=== PATIENT | female | born 1990 | race Caucasian/White ===

== ENCOUNTER 2018-03-23 09:56 | Observation (INO) | payer MEDICAID ==
--- NOTE | 2018-03-23 10:50 | EDPHY ---
H & P Stated Complaint: generalized abd pain and r shoulder pain Time Seen by Provider: 03/23/18 10:28 HPI/ROS: CHIEF COMPLAINT: Abdominal pain, right shoulder pain HISTORY OF PRESENT ILLNESS: 27-year-old female history of autism, minimally verbal, in the ER with mother who provides history. Mother describes patient's history of recurrent constipation however since yesterday afternoon has been complaining of epigastric pain as well as right shoulder pain. No trauma. No discoloration to the shoulder or abdomen. Positive nausea. No vomiting. No bowel movement today. No passing of gas. REVIEW OF SYSTEMS: 10 systems reviewed and negative with the exception of the elements mentioned in the history of present illness PAST MEDICAL & SURGICAL HISTORY: Recurrent constipation. Autism spectrum. Minimally verbal. SOCIAL HISTORY:Lives with parents PHYSICAL EXAM (Prior to examination, patient consented to physical exam, hands were washed and my usual and customary physical exam procedures followed) 1) GENERAL: Well-developed, well-nourished, alert and oriented. Appears to be in no acute distress. 2) HEAD: Normocephalic, atraumatic 3) HEENT: Pupils equal, round, reactive to light bilaterally. Sclera anicteric. Nasopharynx, oropharynx, clear, no lesions. Dry mucous membranes. 4) NECK: Full range of motion, no meningeal signs. 5) LUNGS: Clear auscultation bilaterally, no wheezes, no rhonchi, no retractions. 6) HEART: Regular rate and rhythm, no murmur, no heave, no gallop. 7) ABDOMEN: Tender to palpation epigastrium and right upper quadrant. Positive distension. Negative McBurney's, negative Rovsing's, negative peritoneal sign, 8) MUSCULOSKELETAL: Right upper extremity: No visible or palpable abnormality. No step-off. No signs of trauma. Otherwise, Moving all extremities, no focal areas of tenderness, no obvious trauma. No peripheral edema or discoloration. 9) BACK: No CVA tenderness, no midline vertebral tenderness, no fluctuance, no step-off, no obvious trauma, no visual or palpable abnormality. 10) SKIN: No rash, no petechiae. 11) Psychiatric: Patient is oriented X 3, there is no agitation. DIFFERENTIAL DIAGNOSIS: In no particular order, including but not limited to biliary colic, cholecystitis, peptic ulcer disease, bowel obstruction, volvulus, obstipation pancreatitis, and gastroenteritis. This is a partial list of diagnoses considered. These considerations are based on history, physical exam, past history and reassessment. - Personal History LMP (Females 10-55): 1-7 Days Ago Current Tetanus Diphtheria and Acellular Pertussis (TDAP): Yes - Medical/Surgical History Hx Asthma: No Hx Chronic Respiratory Disease: No Hx Diabetes: No Hx Cardiac Disease: No Hx Renal Disease: No Hx Cirrhosis: No Hx Alcoholism: No Hx HIV/AIDS: No Hx Splenectomy or Spleen Trauma: No Other PMH: autism/seizure as child constipation - Social History Smoking Status: Never smoked Constitutional: Initial Vital Signs Temperature (C) 36.5 C 03/23/18 10:01 Heart Rate 105 H 03/23/18 10:01 Respiratory Rate 17 03/23/18 10:01 Blood Pressure 99/78 L 03/23/18 10:01 O2 Sat (%) 98 03/23/18 10:01 O2 Delivery Mode Room Air Allergies/Adverse Reactions: phenobarbital Allergy (Verified 03/23/18 10:01) Home Medications: Medication Instructions Recorded Guar Gum [Benefiber/Nutrisource 2 tsp PO DAILY 03/23/18 Fiber (*)] Magnesium Hydroxide [Milk of 45 ml PO FR 03/23/18 Magnesia] Medical Decision Making - Diagnostics Imaging Results: Imaging Impressions Abdomen Ultrasound 03/23/18 10:46 Impression: 1. Technically limited exam with inadequate assessment of the pancreas, left hepatic lobe, mid to distal abdominal aorta, gallbladder, and common bile duct. 2. Query "starry night" appearance of the right hepatic lobe. Correlation with hepatitis serologies is suggested. Findings were discussed with Johnny Churchill PA-C at 12:17, on 03/23/2018. Shoulder X-Ray 03/23/18 10:46 Impression: Normal. Findings were discussed with Johnny Churchill PA-C at 12:22, on 03/23/2018. Abdomen CT 03/23/18 12:23 Impression: 1. Severe obstipation, with constipation at the level of the rectum. 2. Urinary bladder cystitis. 3. Nonvisualization of the gallbladder. 4. Equivocal mild central "mesenteric swirling," which could be an early indicator of an internal hernia. Follow-up is suggested. Findings were discussed with Johnny Churchill PA-C at 14:07, on 03/23/2018. Images reviewed myself the ED Course/Re-evaluation: 10:49 a.m.: Patient's history is challenging given her history of autism spectrum and minimally verbal status. Mother and I discussed possible etiologies for her shoulder pain including fracture, sprain, strain or referred pain from abdominal pathology. Will obtain diagnostic studies including ultrasound of the gallbladder, laboratory studies. Care of patient under supervision of secondary supervising physician Dr Alexandra with whom I discussed case. 2:40 p.m.: Re-evaluation. Patient is sleeping. Discussed the imaging results with the parents. I recommended catheterized urinalysis as well as manual disimpaction of feces. Parents request anxiolytic be administered prior to this procedure. 3:30 p.m.: Consultation with hospitalist Dr. Anthony who will admit patient. 3:45 p.m.: With assistance of nursing staff, Quick cath is negative, no urine; rectal examination was extensive stool in the rectal vault, approximately baseball size amount of stool removed by myself. Will place soapsuds enema. 4:23 p.m.: Consultation with Dr. Kiko pierre who will consult - Data Points Laboratory Results: Laboratory Results 03/23/18 11:24 03/23/18 11:24 03/23/18 03/23/18 03/23/18 11:24 11:24 11:24 WBC 13.03 10^3/uL H 10^3/uL (3.80-9.50) RBC 4.08 10^6/uL L 10^6/uL (4.18-5.33) Hgb 13.5 g/dL g/dL (12.6-16.3) Hct 38.2 % % (38.0-47.0) MCV 93.6 fL fL (81.5-99.8) MCH 33.1 pg pg (27.9-34.1) MCHC 35.3 g/dL g/dL (32.4-36.7) RDW 11.9 % % (11.5-15.2) Plt Count 180 10^3/uL 10^3/uL (150-400) MPV 9.3 fL fL (8.7-11.7) Neut % (Auto) 88.7 % H % (39.3-74.2) Lymph % (Auto) 6.9 % L % (15.0-45.0) [place] % (Auto) 3.7 % L % (4.5-13.0) Eos % (Auto) 0.0 % L % (0.6-7.6) Baso % (Auto) 0.2 % L % (0.3-1.7) Nucleat RBC Rel Count 0.0 % % (0.0-0.2) Absolute Neuts (auto) 11.56 10^3/uL H 10^3/uL (1.70-6.50) Absolute Lymphs (auto) 0.90 10^3/uL L 10^3/uL (1.00-3.00) Absolute Monos (auto) 0.48 10^3/uL 10^3/uL (0.30-0.80) Absolute Eos (auto) 0.00 10^3/uL L 10^3/uL (0.03-0.40) Absolute Basos (auto) 0.02 10^3/uL 10^3/uL (0.02-0.10) Absolute Nucleated RBC 0.00 10^3/uL 10^3/uL (0-0.01) Immature Gran % 0.5 % % (0.0-1.1) Immature Gran # 0.07 10^3/uL 10^3/uL (0.00-0.10) Sodium 137 mEq/L mEq/L (135-145) Potassium 3.9 mEq/L mEq/L (3.5-5.2) Chloride 106 mEq/L mEq/L (97-110) Carbon Dioxide 24 mEq/l mEq/l (22-31) Anion Gap 7 mEq/L mEq/L (6-14) BUN 15 mg/dL mg/dL (7-23) Creatinine 0.7 mg/dL mg/dL (0.6-1.0) Estimated GFR > 60 Glucose 100 mg/dL mg/dL (70-100) Calcium 9.3 mg/dL mg/dL (8.5-10.4) Total Bilirubin 2.4 mg/dL H mg/dL (0.1-1.4) Conjugated Bilirubin 0.2 mg/dL mg/dL (0.0-0.5) Unconjugated Bilirubin 2.2 mg/dL H mg/dL (0.0-1.1) AST 59 IU/L H IU/L (14-46) ALT 51 IU/L IU/L (9-52) Alkaline Phosphatase 50 IU/L IU/L (38-126) Total Protein 7.3 g/dL g/dL (6.3-8.2) Albumin 4.2 g/dL g/dL (3.5-5.0) Lipase 86 IU/L IU/L (23-300) Beta HCG, Qual NEGATIVE Medications Given: Discontinued Medications Lorazepam (Ativan Injection) 1 mg IVP EDNOW ONE Stop: 03/23/18 14:44 Last Admin: 03/23/18 14:47 Dose: 1 mg Departure - Departure Disposition: [facility] Inpatient Acute Clinical Impression: Obstipation, Autism spectrum disorder Condition: Fair
[2018-03-23 11:35] LABS: PLATELET COUNT 180 10^3/uL (150-400)
[2018-03-23] MEDS ORDERED: IOPAMIDOL (ISOVUE-300) 100 ML BTL ONE (12:49)
[2018-03-23] MEDS ORDERED: LORazepam 2 MG/ML INJ IVP ONE (14:43)
[2018-03-23] MEDS ORDERED: LORazepam 2 MG/ML INJ ONE (14:44)
[2018-03-23] MEDS ORDERED: ACETAMINOPHEN 325 MG TAB PO PRN (15:32)
[2018-03-23] MEDS ORDERED: ONDANSETRON DISINTEGRATING 4 MG TAB PO PRN (15:32)
[2018-03-23] MEDS ORDERED: ONDANSETRON 4 MG/2 ML VIAL IVP PRN (15:32)
[2018-03-23] MEDS ORDERED: BISACODYL 10 MG SUPP PR PRN (15:34)
[2018-03-23] MEDS ORDERED: MAGNESIUM HYDROXIDE 30 ML UDCUP PO PRN (15:34)
[2018-03-23] MEDS ORDERED: LACTULOSE 20 GM/30 ML UDCUP PO PRN (15:34)
[2018-03-23] MEDS ORDERED: POLYETHYLENE GLYCOL 3350 17 GM PKT PO PRN (15:34)
--- NOTE | 2018-03-23 16:46 | PDGENHP ---
<Varsha Taveras - Last Filed: 03/23/18 18:19> History and Physical - Chief Complaint Abdominal pain - History of Present Illness This is a 27 y/o female who is autistic with minimal verbal interaction presenting with acute lower abdominal pain and right shoulder pain. Her mother was at bedside and cares for the pt. The mother reports chronic constipation since she was at a young age. The pt began to experience abdominal discomfort yesterday. She has a bowel movement every week with the assistance of milk of magnesia. Her bowel movements are rather large in volume, formed, no hematochezia or melena. She was "toliet trained" from ages [age] years old but then "life changes" took place and she became urine incontinent and currently has to wear diapers. No chest pains, SOB, fevers, chills. Abdominal ultrasound and CT scan revealed severe obstipation with constipation at the rectum. She received Ativan and was digitally disimpacted by Dr. Churchill. Afterwards, received a soapsuds enema. She is being admitted for observation. Past Medical/Surgical History 1. Recurrent constipation 2. Autism spectrum 3. Auditory processing disorder Social 1. No tobacco or illicit drug use. No alcohol use. Lives with mother and father. History Information - Allergies/Home Medication List Allergies/Adverse Reactions: phenobarbital Allergy (Verified 03/23/18 10:01) Home Medications: Guar Gum [Benefiber/Nutrisource Fiber (*)] 2 tsp PO DAILY 03/23/18 [Last Taken 03/16/18] Magnesium Hydroxide [Milk of Magnesia] 45 ml PO FR 03/23/18 [Last Taken 03/22/18 ] I have personally reviewed and updated: family history, medical history, social history, surgical history Past Medical History: See HPI list - Surgical History Reports: no pertinent surgical hx Additional surgical history: Eldred teeth removed - Family History Additional family history: Depression - Social History Smoking Status: Never smoked Alcohol Use: None Drug Use: None Review of Systems Review of Systems: ROS: 10pt was reviewed & negative except for what was stated in HPI & below Constitutional: Reports: malaise EENMT: Reports: no symptoms Cardiac: Reports: no symptoms Respiratory: Reports: no symptoms Gastrointestinal: Reports: abdominal pain, abdominal distention, constipation, nausea Genitourinary: Reports: no symptoms Muscolosketal: Reports: muscle pain (R shoulder) Skin: Reports: no symptoms Neurological: Reports: pre-existing deficit Hematologic/Lymphatic: Reports: no symptoms Immunologic/Allergy: Reports: other (See allergy list) Physical Exam Physical Exam: Lab data and imaging reviewed Temp Pulse Resp BP Pulse Ox 36.5 C 100 18 130/72 H 96 03/23/18 10:01 03/23/18 14:00 03/23/18 14:00 03/23/18 14:00 03/23/18 14:00 Constitutional: no apparent distress, appears nourished, not in pain Eyes: PERRL, anicteric sclera, EOMI Ears, Nose, Mouth, Throat: moist mucous membranes, hearing normal, ears appear normal, no oral mucosal ulcers Cardiovascular: regular rate and rhythym, no murmur, rub, or gallop, No edema Peripheral Pulses: 2+: dorsalis-pedis (R) (Radial 2+), dorsalis-pedis (L) ( Radial 2+) Respiratory: reduced air movement (Throughout bilateral lung brar) Gastrointestinal: normoactive bowel sounds, tenderness, distension Genitourinary: no bladder fullness, no bladder tenderness Skin: warm, normal color, no rashes or abrasions, no fluctuance, no induration, No mottled Musculoskeletal: full muscle strength, no muscle tenderness, normal joint ROM, no joint effusions Neurologic: sensation intact bilaterally, CN II-XII Intact, other (Follows commands appropriately) Psychiatric: interacting appropriately Lymph, Heme, Immunologic: no cervical LAD, no supraclavicular LAD Lab Data & Imaging Review 03/23/18 11:24 03/23/18 11:24 WBC 13.03 10^3/uL (3.80-9.50) H 03/23/18 11:24 RBC 4.08 10^6/uL (4.18-5.33) L 03/23/18 11:24 Hgb 13.5 g/dL (12.6-16.3) 03/23/18 11:24 Hct 38.2 % (38.0-47.0) 03/23/18 11:24 MCV 93.6 fL (81.5-99.8) 03/23/18 11:24 MCH 33.1 pg (27.9-34.1) 03/23/18 11:24 MCHC 35.3 g/dL (32.4-36.7) 03/23/18 11:24 RDW 11.9 % (11.5-15.2) 03/23/18 11:24 Plt Count 180 10^3/uL (150-400) 03/23/18 11:24 MPV 9.3 fL (8.7-11.7) 03/23/18 11:24 Neut % (Auto) 88.7 % (39.3-74.2) H 03/23/18 11:24 Lymph % (Auto) 6.9 % (15.0-45.0) L 03/23/18 11:24 [place] % (Auto) 3.7 % (4.5-13.0) L 03/23/18 11:24 Eos % (Auto) 0.0 % (0.6-7.6) L 03/23/18 11:24 Baso % (Auto) 0.2 % (0.3-1.7) L 03/23/18 11:24 Nucleat RBC Rel Count 0.0 % (0.0-0.2) 03/23/18 11:24 Absolute Neuts (auto) 11.56 10^3/uL (1.70-6.50) H 03/23/18 11:24 Absolute Lymphs (auto) 0.90 10^3/uL (1.00-3.00) L 03/23/18 11:24 Absolute Monos (auto) 0.48 10^3/uL (0.30-0.80) 03/23/18 11:24 Absolute Eos (auto) 0.00 10^3/uL (0.03-0.40) L 03/23/18 11:24 Absolute Basos (auto) 0.02 10^3/uL (0.02-0.10) 03/23/18 11:24 Absolute Nucleated RBC 0.00 10^3/uL (0-0.01) 03/23/18 11:24 Immature Gran % 0.5 % (0.0-1.1) 03/23/18 11:24 Immature Gran # 0.07 10^3/uL (0.00-0.10) 03/23/18 11:24 Sodium 137 mEq/L (135-145) 03/23/18 11:24 Potassium 3.9 mEq/L (3.5-5.2) 03/23/18 11:24 Chloride 106 mEq/L (97-110) 03/23/18 11:24 Carbon Dioxide 24 mEq/l (22-31) 03/23/18 11:24 Anion Gap 7 mEq/L (6-14) 03/23/18 11:24 BUN 15 mg/dL (7-23) 03/23/18 11:24 Creatinine 0.7 mg/dL (0.6-1.0) 03/23/18 11:24 Estimated GFR > 60 03/23/18 11:24 Glucose 100 mg/dL (70-100) 03/23/18 11:24 Calcium 9.3 mg/dL (8.5-10.4) 03/23/18 11:24 Total Bilirubin 2.4 mg/dL (0.1-1.4) H 03/23/18 11:24 Conjugated Bilirubin 0.2 mg/dL (0.0-0.5) 03/23/18 11:24 Unconjugated Bilirubin 2.2 mg/dL (0.0-1.1) H 03/23/18 11:24 AST 59 IU/L (14-46) H 03/23/18 11:24 ALT 51 IU/L (9-52) 03/23/18 11:24 Alkaline Phosphatase 50 IU/L (38-126) 03/23/18 11:24 Total Protein 7.3 g/dL (6.3-8.2) 03/23/18 11:24 Albumin 4.2 g/dL (3.5-5.0) 03/23/18 11:24 Lipase 86 IU/L (23-300) 03/23/18 11:24 Beta HCG, Qual NEGATIVE 03/23/18 11:24 Assessment & Plan Plan: 27 y/o female with autism presents with severe constipation. She has chronic constipation and has a bowel movement every week with the assistance of milk of magnesia. 1. Constipation -Bowel regimen -Encourage ambulation -Encourage diet high in fiber -Avoid narcotics 2. Abdominal pain/nausea -Anti-emetics PRN -Tylenol PRN -Mild leukocytosis, most likely reactive d/t above condition 3. Elevated AST: recommend f/u outpatient Diet: Regular, would recommend high in fiber Code: Full VTE ppx: SCDs Dispo: Admit to obs <Arash Avila - Last Filed: 03/23/18 18:33> History and Physical - History of Present Illness Review of Systems Review of Systems: Physical Exam Physical Exam: Temp Pulse Resp BP Pulse Ox 38.1 C 118 H 20 126/81 H 96 03/23/18 17:38 03/23/18 17:38 03/23/18 17:38 03/23/18 17:38 03/23/18 17:38 Lab Data & Imaging Review 03/23/18 11:24 03/23/18 11:24 WBC 13.03 10^3/uL (3.80-9.50) H 03/23/18 11:24 RBC 4.08 10^6/uL (4.18-5.33) L 03/23/18 11:24 Hgb 13.5 g/dL (12.6-16.3) 03/23/18 11:24 Hct 38.2 % (38.0-47.0) 03/23/18 11:24 MCV 93.6 fL (81.5-99.8) 03/23/18 11:24 MCH 33.1 pg (27.9-34.1) 03/23/18 11:24 MCHC 35.3 g/dL (32.4-36.7) 03/23/18 11:24 RDW 11.9 % (11.5-15.2) 03/23/18 11:24 Plt Count 180 10^3/uL (150-400) 03/23/18 11:24 MPV 9.3 fL (8.7-11.7) 03/23/18 11:24 Neut % (Auto) 88.7 % (39.3-74.2) H 03/23/18 11:24 Lymph % (Auto) 6.9 % (15.0-45.0) L 03/23/18 11:24 [place] % (Auto) 3.7 % (4.5-13.0) L 03/23/18 11:24 Eos % (Auto) 0.0 % (0.6-7.6) L 03/23/18 11:24 Baso % (Auto) 0.2 % (0.3-1.7) L 03/23/18 11:24 Nucleat RBC Rel Count 0.0 % (0.0-0.2) 03/23/18 11:24 Absolute Neuts (auto) 11.56 10^3/uL (1.70-6.50) H 03/23/18 11:24 Absolute Lymphs (auto) 0.90 10^3/uL (1.00-3.00) L 03/23/18 11:24 Absolute Monos (auto) 0.48 10^3/uL (0.30-0.80) 03/23/18 11:24 Absolute Eos (auto) 0.00 10^3/uL (0.03-0.40) L 03/23/18 11:24 Absolute Basos (auto) 0.02 10^3/uL (0.02-0.10) 03/23/18 11:24 Absolute Nucleated RBC 0.00 10^3/uL (0-0.01) 03/23/18 11:24 Immature Gran % 0.5 % (0.0-1.1) 03/23/18 11:24 Immature Gran # 0.07 10^3/uL (0.00-0.10) 03/23/18 11:24 Sodium 137 mEq/L (135-145) 03/23/18 11:24 Potassium 3.9 mEq/L (3.5-5.2) 03/23/18 11:24 Chloride 106 mEq/L (97-110) 03/23/18 11:24 Carbon Dioxide 24 mEq/l (22-31) 03/23/18 11:24 Anion Gap 7 mEq/L (6-14) 03/23/18 11:24 BUN 15 mg/dL (7-23) 03/23/18 11:24 Creatinine 0.7 mg/dL (0.6-1.0) 03/23/18 11:24 Estimated GFR > 60 03/23/18 11:24 Glucose 100 mg/dL (70-100) 03/23/18 11:24 Calcium 9.3 mg/dL (8.5-10.4) 03/23/18 11:24 Total Bilirubin 2.4 mg/dL (0.1-1.4) H 03/23/18 11:24 Conjugated Bilirubin 0.2 mg/dL (0.0-0.5) 03/23/18 11:24 Unconjugated Bilirubin 2.2 mg/dL (0.0-1.1) H 03/23/18 11:24 AST 59 IU/L (14-46) H 03/23/18 11:24 ALT 51 IU/L (9-52) 03/23/18 11:24 Alkaline Phosphatase 50 IU/L (38-126) 03/23/18 11:24 Total Protein 7.3 g/dL (6.3-8.2) 03/23/18 11:24 Albumin 4.2 g/dL (3.5-5.0) 03/23/18 11:24 Lipase 86 IU/L (23-300) 03/23/18 11:24 Beta HCG, Qual NEGATIVE 03/23/18 11:24 Assessment & Plan Assessment: Autism spectrum disorder (Acute) Obstipation (Acute) Plan: I have reviewed vitals, labs, imaging and personally examined the patient. Agree with plan outlined above by Heathre Taveras NP. Please see separate note for additional details.
--- NOTE | 2018-03-23 17:00 | HOSPPROG ---
Hospitalist Progress Note Assessment/Plan: Case discussed with Heather Taveras FOOD COUNTER ATTENDANT and I agree with her plan with the following exceptions: Briefly, 27yo F with autism and chronic constipation here with abdominal pain and nausea found to have significant constipation on abdominal CT. She underwent disimpaction with removal of some stool (baseball sized per report) in ED and just received a soapsuds enema prior to me seeing her. She appears comfortable but has received some ativan prior to the enema. CT does not show any mechanical obstruction. Non-peritoneal abdomen. Per her mother, constipation has been ongoing issue for years and had been seeing GI previously. She usually has 1 BM/week and takes mag citrate once weekly. Assessment/Plan: 1. Acute on chronic constipation: s/p manual disimpaction and enema. Aggressive bowel regimen. 2. Abdominal pain, nausea: Related to above. Avoid narcotics. Anti-emetics. 3. Leukocytosis: Likely reactive in setting of above. 4. Unconjugated hyperbilirubinemia: No prior to compare. Query gilbert's syndrome. 5. Elevated AST: Possible component of fatty liver. Recommend rechecking as outpatient. Dispo: Admit under observation Objective: Vital Signs Temp Pulse Resp BP Pulse Ox 36.5 C 100 18 130/72 H 96 03/23/18 10:01 03/23/18 14:00 03/23/18 14:00 03/23/18 14:00 03/23/18 14:00 ICD10 Worksheet Patient Problems: Problems Problem Status Onset Autism spectrum disorder Acute Obstipation Acute
[2018-03-23] MEDS: NS 1,000 ML IV SCH (17:52)
[2018-03-23] MEDS ORDERED: NS 500 ML IV ONE (18:14)
--- NOTE | 2018-03-23 20:59 | PDCONSULT ---
Breakfast Server Note: 27 y/o female with longstanding problems with obstipation admitted with abdominal distention and pain. She was found to have a fecal impaction in the ED with proximal colonic dilatation. Surgical consultation was requested by Ruben Churchill PA-C. Moraima has a history of autism and states that "her tummy is not good". PMH: no prior abdominal surgery all: phenobarbital meds: prn MOM and Benefiber at home non-smoker/no EtOH SH: lives with her parents/Mother at bedside ROS: unobtainable FH: NC PE: BP 91/57 P 124 R 16 O2sat 96% RA T 38.3 Healthy appearing young woman who appears in mild distress, very limited communication Abd: soft, distended and tympanitic, no focal tenderness or guarding or mass bowel sounds are hypoactive Pelvis/Rectal: not repeated wbc 13 Hgb 13.5 Hct 38.2 plat 180K bili 2.4/unconj 2.[address] reviewed: markedly dilated colon with distal fecal impaction, no free air, no free fluid Imp: 1. fecal impaction with proximal large bowel obstruction from the appearance of the colon, this is likely chronic in nature 2. mild hypotension/tachycardia-consider volume depletion 3. low grade fever 4. elevated bili c/w Gilbert's Rec: continue efforts at resolution with enemas and suppository Gi consult for possible colonoscopy consider neostigmine if unable to resolve volume replacement: one liter Normal Saline ordered fever work up Ramón Hoover MD, FACS
[2018-03-23] MEDS ORDERED: SENNOSIDES/DOCUSATE SODIUM TAB PO SCH (21:00)
[2018-03-23] MEDS ORDERED: NS 1,000 ML IV ONE (21:50)
[2018-03-23] MEDS: POLYETHYLENE GLYCOL 3350 17 GM PKT PO SCH (22:42)
[2018-03-24 06:07] LABS: PLATELET COUNT 195 10^3/uL (150-400)
[2018-03-24] MEDS: POLYETHYLENE GLYCOL 3350 17 GM PKT PO SCH (08:55)
[2018-03-24] MEDS ORDERED: BENEFIBER/NUTRISOURCE FIBER PKT 1 EACH PO SCH (09:00)
--- NOTE | 2018-03-24 10:08 | HOSPPROG ---
Hospitalist Progress Note Assessment/Plan: Moraima is a 27 y/o female w autism who suffers from chronic constipation. She presented to the ER with abdominal pain and constipation. Abdominal CT notes constipation. * Acute on chronic constipation -s/p manual disimpaction and enema -no bowel movement yet-will try mag citrate and Dulcolax -could consider a half dose of golytely prep, but doubt Moraima will drink it duke w her autism * Abdominal pain, nausea: Related to above. Avoid narcotics. Anti-emetics. * Leukocytosis: Likely reactive in setting of above. 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 *tachycardia -unable to tell if this is chronic, or if she is uncomfortable -will monitor *Elevated AST -resolved *right shoulder pain -shoulder x ray shows nothing acute *autism *auditory processing disorder Subjective: Moraima is happy, says she is hungry. Objective: Vital Signs Temp Pulse Resp BP Pulse Ox 36.9 C 108 H 18 102/69 88 L 03/24/18 08:00 03/24/18 08:00 03/24/18 08:00 03/24/18 08:00 03/24/18 08:00 Laboratory Results 03/24/18 05:26 03/24/18 05:26 03/23/18 03/24/18 03/25/18 05:59 05:59 05:59 Intake Total 500 Balance 500 - Physical Exam Constitutional: no apparent distress Eyes: PERRL Ears, Nose, Mouth, Throat: hearing normal Cardiovascular: regular rate and rhythym Respiratory: no respiratory distress Gastrointestinal: distension, No normoactive bowel sounds (hypoactive) Skin: warm Musculoskeletal: generalized weakness Neurologic: other (alert, doesn't talk very much) ICD10 Worksheet Patient Problems: Problems Problem Status Onset Autism spectrum disorder Acute Obstipation Acute
[2018-03-24] MEDS: NS 1,000 ML IV SCH (10:26)
[2018-03-24 10:58] VITALS: BP 102/87
[2018-03-24] MEDS ORDERED: BISACODYL 10 MG SUPP PR ONE (11:06)
[2018-03-24] MEDS ORDERED: MAGNESIUM CITRATE 300 ML BOTTLE PO ONE (11:06)
--- NOTE | 2018-03-24 15:34 | ASMTCMCOM ---
CM Note CM Note Notes: Case Management Chart Review for Discharge Support: Patient is 27 year old female with history of autism who presented to [facility] ED with mother who provided history of recurrent constipation, epigastric pain, right shoulder pain, and nausea. Patient is minimally verbal, lives with parents. Abdominal CT notes constipation, patient admitted under observation, surgery consult ordered. CM discussed with Roseann Cordoba HAND CARVER, patient to discharge today home with parents. CM met with patient and mom Joselin, discussed ongoing care. CM gave info to [facility], [facility]/Medicaid transportation, Behavioral health referral- [employer] as a resource and printed therapists accepting Medicaid who work with Autism, [place] [facility] info. Patient to discharge home independently and follow up as recommended. CM available to support if any further needs arise. Date Signed: 03/24/2018 03:33 PM Electronically Signed By:Radha Nolen
--- NOTE | 2018-03-24 15:49 | GDS ---
DISCHARGE DIAGNOSES: 1. Acute on chronic constipation. 2. Abdominal pain related to this. 3. Leukocytosis. 4. Unconjugated hyperbilirubinemia. 5. Tachycardia. 6. Elevated AST. 7. Right shoulder pain. 8. Autism. 9. Auditory processing disorder. CONSULTATION: Dr. Tho Hoover HISTORY OF PRESENT ILLNESS: Briefly, the patient is a 27-year-old woman who has autism. She has a l ongstanding problem with constipation and she was being admitted for abdominal distention and pain. She was found to have a fecal impaction in the, emergency room with proximal colonic dilation. She w as evaluated by Dr. Hoover and he noted that her fecal impaction with proximal large bowel obstruction is likely chronic in nature. She was resuscitated with fluids to see if that would help. In additio n, she was disimpacted in the emergency room. She also was given an enema. She has not been able to have a bowel movement on her own today until she had a dose of Mag citrate and Dulcolax. She had a very large bowel movement, is feeling markedly better. She will be discharged home. I reviewed with the patient's mother that it would be better she had more frequent bowel movements, instead of weekl y. She will give her MiraLAX daily and try to increase her fiber intake. HOSPITAL COURSE PER PROBLEM: 1. Acute on chronic constipation, resolved. 2. Abdominal pain and nausea. this is resolved. 3. Leukocytosis, likely reactive in the setting of above. 4. Unconjugated hyperbilirubinemia, likely Gilbert's syndrome. 5. Tachycardic. Her heart rate slowed down after she had a large bowel movement. I also suspect alejandro pérez is very scared and anxious being in the hospital. I showed her mom how to check her pulse to make sure this is not ongoing. 6. Elevated AST, resolved. 7. Right shoulder pain. Shoulder x-ray showed nothing acute. 8. Autism, as well as auditory processing disorder. Case Management gave the patient's mom resource s to get the mom support, as well as the patient support. DISCHARGE CONDITION: Stable. Blood pressure is 102/87, heart rate 94, respiratory rate of 18, O2 sa ts on room air 93%, temperature is 37.2 Celsius. MEDICATIONS AT DISCHARGE: Please see the EMR. DISCHARGE INSTRUCTIONS: 1. Recommending that she buy her daughter Smooth Move tea and drink this daily. This will help her have regular bowel movements. 2. Recommending MiraLAX daily.. /[id number]/MODL
--- NOTE | 2018-03-24 16:22 | ASDISCHSUM ---
Discharge Information Plan Status:Home with No Needs Medically Cleared to Leave:03/23/2018 Discharge Date:03/23/2018 CM D/C Disposition:Home, Routine, Self-Care ADT D/C Disposition:Home, Routine, Self-Care Projected Discharge Date:03/26/2018 12:00 AM Transportation at D/C:Family Discharge Delay Reason: Follow-Up Date:03/26/2018 12:00 AM Discharge Slot:2 - 12:01 pm - 18:00 pm Final Diagnosis:Acute on Chronic Constipation Placement Information Patient Contact Information Contact Name:GREGG Relationship:Father Address:[address] Work Phone: [facility]:[place] Alternate Phone: [facility]/Zip Code:[place] [address] Email: Financial Information Financial Class:Medicaid Primary Plan Desc:MEDICAID HEALTH FIRST MULTIMEDIA ASSISTANT Primary Plan Number:[id number] Secondary Plan Desc: Secondary Plan Number: Assessment Information [facility] CM Progress Note CM Note CM Note Notes: Case Management Chart Review for Discharge Support: Patient is 27 year old female with history of autism who presented to [facility] ED with mother who provided history of recurrent constipation, epigastric pain, right shoulder pain, and nausea. Patient is minimally verbal, lives with parents. Abdominal CT notes constipation, patient admitted under observation, surgery consult ordered. CM discussed with Roseann Cordoba [employer]UR[employer] SITE SUPERVISOR, patient to discharge today home with parents. CM met with patient and mom Joselin, discussed ongoing care. CM gave info to [facility], [place]/Medicaid transportation, Behavioral health referral- [employer] as a resource and printed therapists accepting Medicaid who work with Autism, [place] [facility], [place] info. Patient to discharge home independently and follow up as recommended. CM available to support if any further needs arise. Date Signed: 03/24/2018 03:33 PM Electronically Signed By:Radha Nolen Intervention Information
== END 2018-03-24 16:22 | disposition home or self-care (01) ==
LOC: F3E 17:30
PROVIDERS: ADMIT Internal Medicine; ATTEND Internal Medicine
PROC: 0T9B70Z Drainage of Bladder with Drainage Device, Via Natural or Artificial Opening (ICD-10-PCS; principal; 2018-03-23)
DX: K59.00 Constipation, unspecified (principal); F84.0 Autistic disorder; H93.25 Central auditory processing disorder; D72.829 Elevated white blood cell count, unspecified; E80.6 Other disorders of bilirubin metabolism; R00.0 Tachycardia, unspecified; R94.5 Abnormal results of liver function studies; M25.511 Pain in right shoulder
CPT/HCPCS: 51701; 73030; 74177; 76705; 96361; 96374; 99285; G0378; J2060; J2405; Q9967